=== PATIENT | male | born 1995 | race Caucasian/White ===

== ENCOUNTER 2021-08-28 15:27 | Emergency (ER) | payer OTHER, SELFPAY ==
--- NOTE | 2021-08-28 15:30 | ED.URI ---
HPI - URI/Sore Throat General Chief Complaint: Upper Respiratory Infection Stated Complaint: Fever/Congestion/Cough/Chest Congestion Time Seen by Provider: 08/28/21 15:30 Source: patient and RN notes reviewed History of Present Illness HPI Narrative: Patient is a 26-year-old male who presents the urgent care with complaints of fever, congestion, cough, chest congestion and fever. Patient states his symptoms started last night and everyone in his home is positive for COVID. Patient has had a COVID vaccine. Patient has not taken anything [id number] for his symptoms. Denies of any nausea or vomiting. No other acute complaints. No acute distress noted. Patient had a plan of care. Some parts of this dictation were generated by voice recognition software and may contain typographical and/or grammatical inaccuracies. Related Data Home Medications Medication Instructions Recorded Confirmed gabapentin 08/28/21 naloxone [Narcan] INTRANASAL 08/28/21 trazodone 08/28/21 Allergies Allergy/AdvReac Type Severity Reaction Status Date / Time No Known Allergies Allergy Verified 08/28/21 15:42 Review of Systems Review of Systems: CONSTITUTIONAL: Reports a fever EYES: Denies visual changes, redness, or discharge. ENT: Reports of sinus congestion, sore throat, postnasal drainage CARDIOVASCULAR: Denies chest pain, palpitations, or edema. RESPIRATORY: Reports of cough without dyspnea GASTROINTESTINAL: Denies abdominal pain, nausea, vomiting, or diarrhea. GENITOURINARY: Denies dysuria or hematuria. SKIN: Denies rash or itching. MUSCULOSKELETAL: Denies back pain, joint pain, or myalgia. NEUROLOGIC: Reports of intermittent headaches All other systems reviewed are negative, except as documented in HPI. PMFSH Comments At the time of my signature, I reviewed and agree with the nursing past medical, surgical, social, and family history. There is no relevant family history pertinent to the patient complaint. Exam Narrative: GENERAL: This is a well-nourished, well-developed patient, in no apparent distress. HEAD: normocephalic, atraumatic. EYES: PERRL. Sclera clear/white. Vision is grossly intact. EARS: External ears normal, auditory canals clear and without drainage, TMs normal without perforation. Hearing grossly intact. NOSE: External nose normal with no obvious nasal discharge, mild bilateral erythemic nares with clear to yellow rhinorrhea THROAT: Mucous membranes moist, posterior pharynx clear. Mild postnasal drainage NECK: Neck supple, non-tender without lymphadenopathy, masses or thyromegaly. CARDIOVASCULAR: Regular rate and rhythm without murmurs, gallops, or rubs. RESPIRATORY: Coarse crackles throughout with mild expiratory wheezes SKIN: warm, intact with no suspicious lesions or rash, good texture and turgor. NEURO: awake, alert, and oriented to person, place and time. There were no obvious focal neurologic abnormalities. EXTREMITIES: No clubbing, cyanosis, or edema. Course Course Level of Care: Express Care Visit Vital Signs Vital signs: Vital Signs Temperature 98.1 F 08/28/21 15:34 Pulse Rate 63 08/28/21 15:34 Respiratory Rate 16 08/28/21 15:34 Blood Pressure 128/72 08/28/21 15:34 Pulse Oximetry 99 08/28/21 15:34 Temperature 98.1 F 08/28/21 15:34 Pulse Rate 63 08/28/21 15:34 Respiratory Rate 16 08/28/21 15:34 Blood Pressure 128/72 08/28/21 15:34 Pulse Oximetry 99 08/28/21 15:34 Reviewed MDM - URI/Sore Throat MDM Narrative Medical decision making narrative: Advised the patient to remain quarantine per CDC guidelines. Testing is not necessary considering you are living in a home with positive COVID patients and you are symptomatic. You need to start your quarantine on day 1 of symptom onset, which was reported as of yesterday. Complete the steroid regimen as prescribed. Complete the antibiotic regimen as prescribed. Use Tylenol/ibuprofen as needed for fever pain. Increase your
[2021-08-28 15:34] VITALS: BP 128/72; PULSE 63; RESP 16; TEMP 36.7; O2SAT 99
== END 2021-08-28 15:55 | disposition home or self-care (01) ==
PROVIDERS: Emergency Provider Nurse Practitioner Family
DX: Z20.822 Contact with and (suspected) exposure to COVID-19 (principal); R50.9 Fever, unspecified; R05.9 Cough, unspecified; R09.89 Other specified symptoms and signs involving the circulatory and respiratory systems
CPT/HCPCS: 99213; G0463

== ENCOUNTER 2024-03-24 15:36 | Emergency (ER) | payer OTHER, SELFPAY ==
[2024-03-24 15:50] VITALS: BP 120/79; PULSE 79; RESP 20; TEMP 37; O2SAT 100
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
== END 2024-03-24 16:57 | disposition home or self-care (01) ==
PROVIDERS: Emergency Provider Registered Nurse
DX: H10.9 Unspecified conjunctivitis (principal); F17.210 Nicotine dependence, cigarettes, uncomplicated; F17.290 Nicotine dependence, other tobacco product, uncomplicated
CPT/HCPCS: 99213; G0463

== ENCOUNTER 2024-08-21 17:29 | Emergency (ER) | payer OTHER, SELFPAY ==
[2024-08-21 17:35] VITALS: BP 148/86; PULSE 70; RESP 20; TEMP 37.3; O2SAT 99
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
== END 2024-08-21 18:40 | disposition home or self-care (01) ==
PROVIDERS: Emergency Provider Nurse Practitioner Family
DX: U07.1 COVID-19 (principal); F17.210 Nicotine dependence, cigarettes, uncomplicated; F17.290 Nicotine dependence, other tobacco product, uncomplicated
CPT/HCPCS: 99211; G0463

== ENCOUNTER 2024-12-07 11:38 | Emergency (ER) | payer OTHER, MEDICAID, SELFPAY ==
[2024-12-07 11:45] VITALS: BP 145/80; PULSE 56; RESP 16; TEMP 36.6; O2SAT 100
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
[2024-12-07 12:51] LABS: EDCOVIDSCREEN Negative (Negative); EDINFLUASCREEN Negative (Negative); EDINFLUBSCREEN Negative (Negative); EDSTREPNEGPOS1 Negative (Negative)
--- OUTSIDE RECORDS SUMMARY | 2024-12-07 13:25 | XMS_ITS | Patient Health Record ---
Author Organization [facility] Address [address] [place] [address] Care Team Providers Care Alkylation Operator Name Role Phone Eleazar Sampson Primary Care Provider [phone] Tito Horn Unavailable [phone] Sydnee Tyler Unavailable [phone] Yamini Will Unavailable Rita Davenport Unavailable [phone] Allergies No Known Allergies Results Component Value Reference Range Notes 12 Panel Urine Drug Screen Reviewed date:10/09/2024 01:57:40 PM Interpretation: Performing Lab: Notes/Report: THC neg RUBY neg MOP (OPI) neg AMP neg MET neg BAR neg BZO neg MDMA neg MTD neg OXY neg PCP neg BUP POS 12 Panel Urine Drug Screen Reviewed date:11/12/2024 01:18:45 PM Interpretation: Performing Lab: Notes/Report: THC neg RUBY neg MOP (OPI) neg AMP neg MET neg BAR neg BZO neg MDMA neg MTD neg OXY neg PCP neg BUP POS 12 Panel Urine Drug Screen Reviewed date:01/22/2024 01:42:08 PM Interpretation: Performing Lab: Notes/Report: THC neg RUBY neg MOP (OPI) neg AMP neg MET neg BAR neg BZO neg MDMA neg MTD neg OXY neg PCP neg BUP POS 12 Panel Urine Drug Screen Reviewed date:05/22/2024 01:04:54 PM Interpretation: Performing Lab: Notes/Report: THC neg RUBY neg MOP (OPI) neg AMP neg MET neg BAR neg BZO neg MDMA neg MTD neg OXY neg PCP neg BUP POS 12 Panel Urine Drug Screen Reviewed date:09/04/2024 01:49:02 PM Interpretation: Performing Lab: Notes/Report: THC neg RUBY neg MOP (OPI) neg AMP neg MET neg BAR neg BZO neg MDMA neg MTD neg OXY neg PCP neg BUP POS Buprenorphine and Metabolite (Urine test) Reviewed date:07/29/2024 11:32:19 AM Interpretation: Performing Lab:[facility], [address] [employer], [facility], Phone - [phone], Director - PhDAbudu Notes/Report: Clinical Information:[id number] Buprenorphine Positive Confirmation p erformed by Mass Spectrometry Buprenorphine Positive Buprenorphine Conf, MS, UR 684 Cutoff=10 ng/m L Norbuprenorphine Positive Norbuprenorphine Conf, MS, UR 606 Cutoff=10 n g/mL 12 Panel Urine Drug Screen Reviewed date:07/23/2024 02:28:43 PM Interpretation: Performing Lab: Notes/Report: THC neg RUBY neg MOP (OPI) neg AMP neg MET neg BAR neg BZO neg MDMA neg MTD neg OXY neg PCP neg BUP POS Buprenorphine and Metabolite (Urine test) Reviewed date:04/01/2024 09:19:21 AM Interpretation: Performing Lab:[facility], [address] [employer], [facility], Phone - [phone], Director - PhDAbudu Notes/Report: Clinical Information:[id number] Buprenorphine Positive Confirmation p erformed by Mass Spectrometry Buprenorphine Positive Buprenorphine Conf, MS, UR 135 Cutoff=10 ng/m L Norbuprenorphine Positive Norbuprenorphine Conf, MS, UR 110 Cutoff=10 n g/mL 12 Panel Urine Drug Screen Reviewed date:02/28/2024 02:48:05 PM Interpretation: Performing Lab: Notes/Report: THC neg RUBY neg MOP (OPI) neg AMP neg MET neg BAR neg BZO neg MDMA neg MTD neg OXY neg PCP neg BUP POS 12 Panel Urine Drug Screen Reviewed date:06/24/2024 10:27:32 AM Interpretation: Performing Lab: Notes/Report: THC neg RUBY neg MOP (OPI) neg AMP neg MET neg BAR neg BZO neg MDMA neg MTD neg OXY neg PCP neg BUP POS 12 Panel Urine Drug Screen Reviewed date:04/24/2024 01:05:32 PM Interpretation: Performing Lab: Notes/Report: THC neg RUBY neg MOP (OPI) neg AMP neg MET neg BAR neg BZO neg MDMA neg MTD neg OXY neg PCP neg BUP POS 12 Panel Urine Drug Screen Reviewed date:03/25/2024 10:44:32 AM Interpretation: Performing Lab: Notes/Report: THC neg RUBY neg MOP (OPI) neg AMP neg MET neg BAR neg BZO neg MDMA neg MTD neg OXY neg PCP neg BUP POS 12 Panel Urine Drug Screen Reviewed date:12/16/2023 02:05:16 PM Interpretation: Performing Lab: Notes/Report: THC NEG RUBY NEG MOP (OPI) NEG AMP NEG MET NEG BAR NEG BZO NEG MDMA NEG MTD NEG OXY NEG PCP NEG BUP POS Reason For Referral No Information Medications Medication SIG (Take, Route, Frequency, Duration) Notes Start Date End Date Status buPROPion HCl ER (XL) 300 mg TAKE 1 TABL ET BY MOUTH IN THE MORNING for 30 Active hydrOXYzine HCl 25 MG 1 tablet as needed for anxiety Orally twice a day for 30 day(s) 05/17/2021 Active traZODone HCl 150 mg TAKE 1 TABLET BY MO UT AT BEDTIME for 30 Active Narcan 4 MG/0.1ML as directed Nasally Active Buprenorphine HCl-Naloxone HCl 8-2 MG 1 film under the tongue and allow to dissolve Sublingual three times a day 11/12/2024 Active Gabapentin 300 mg 1 capsule Orally twi ce a day Active Social History Tobacco Use: Social History Observation Description Date Details (start date - stop date) Unknown Sex Assigned At : Social History Observation Description Sex Assigned At Male Tobacco Control (Standard) Question Answer Notes Tobacco use: Uses tobacco in other forms Additional Findings: Tobacco user e-cigarette Problems Problem Type SNOMED Code ICD Code Onset Dates Problem Status W/U Status Risk Notes Problem Tobacco user (119908845) Nicotine dependence, unspecified, uncomplicated (F17.200) Active confirmed Problem Tobacco dependence (56368968) Tobacco dependence (F17.200) Active confirmed Problem Anxiety (65350111) Anxiety (F41.9) Active confirmed Problem Psychoactive substance dependence (0211249) Chemical dependency (F19.20) Active confirmed Problem 373424648785043 Obesity (BMI 30.0-34.9) (E66.9) Active confirmed Problem 739221255 Chronic hepatitis C without hepatic coma (B18.2) 021 Active confirmed ANTIBODIES ONLY; NO RNA; NL LFTS Problem 371642971 Tobacco use disorder (F17.200) Active confirmed Problem 9224608 Opioid use disorder (F11.99) Active confirmed Problem 16753737 Major depressive disorder, recurrent episode with anxious distress (F33.9) 022 Active confirmed Vital Signs Heart Rate 53 /min 11/12/2024 Temperature 98.8 degrees Fahrenheit 05/22/2024 Respiratory Rate 18 /min 11/12/2024 Blood pressure diastolic 60 mm Hg 11/12/2024 Oximetry 98 % 11/12/2024 Height 68.5 in 11/12/2024 Blood pressure systolic 102 mm Hg 11/12/2024 Weight 178 lb 4 oz lbs 11/12/2024 BMI 26.71 kg/m2 11/12/2024 Encounters Encounter Location Date Provider Diagnosis [address] [address] 12/16/2023 Yamini Will Opioid use disorder F11.99 and Tobacco use disorder F17.[address] [address] [facility] [address] 01/22/2024 Tito Horn Opioid use disorder F11.[address] [address] 01/22/2024 [facility] [address] 02/28/2024 Tito Horn Opioid use disorder F11.[address] [address] 02/28/2024 [facility] [address] [address] 03/25/2024 Rita Davenport Opioid use disorder F11.99 ; Nicotine dependence, unspecified, uncomplicated F17.200 ; Dietary counseling Z71.3 and Overweight (BMI 25.0-29.9) E66.[address] [address] 03/25/2024 [facility]nee [facility] [address] [address] 04/24/2024 Eleazar Sampson Opioid use disorder F11.99 and Nicotine dependence, unspecified, uncomplicated F17.[address] [address] 05/22/2024 Eleazarbryant Sampson Opioid use disorder F11.99 and Nicotine dependence, unspecified, uncomplicated F17.[address] [address] 06/24/2024 Tito Horn Opioid use disorder F11.99 and Exposure to potential infection Z20.9 [facility] [address], [place] [address] 07/23/2024 Yamini Nicolette Opioid use disorder F11.99 and Nicotine dependence, unspecified, uncomplicated F17.[address] [address] 09/04/2024 Eleazar Sampson Opioid use disorder F11.99 ; Overweight E66.3 ; Nutritional counseling Z71.3 and Nicotine dependence, unspecified, uncomplicated F17.[address] [address] 10/09/2024 Eleazar Sampson Opioid use disorder F11.99 ; Overweight E66.3 ; Nutritional counseling Z71.3 and Nicotine dependence, unspecified, uncomplicated F17.[address] [address] 11/12/2024 Tito Horn Opioid use disorder F11.[address] [address] 01/22/2024 Eleazar Sampson Dental infection K04.7 and Anxiety F41.[address] [address] 02/28/2024 Eleazar Sampson Anxiety F41.[address] [place] [address] 06/24/2024 Tito Horn Opioid use disorder F11.[address] [place] [address] 07/23/2024 Eleazar Sampson Opioid use disorder F11.99 Assessments Encounter Date Diagnosis (ICD Code) Assessment Notes Treatment Notes Treatment Clinical Notes Section Notes 02/28/2024 Opioid use disorder (ICD-10 - F11.99) 02/28/2024 Anxiety (ICD-10 - F41.9) 04/24/2024 Nicotine dependence, unspecified, uncomplicated (ICD-10 - F17.200) 04/24/2024 Opioid use disorder (ICD-10 - F11.99) 05/22/2024 Nicotine dependence, unspecified, uncomplicated (ICD-10 - F17.200) 05/22/2024 Opioid use disorder (ICD-10 - F11.99) 07/23/2024 Opioid use disorder (ICD-10 - F11.99) 07/23/2024 Opioid use disorder (ICD-10 - F11.99) 10/09/2024 Overweight (ICD-10 - E66.3) 10/09/2024 Opioid use disorder (ICD-10 - F11.99) 06/24/2024 Opioid use disorder (ICD-10 - F11.99) 06/24/2024 Opioid use disorder (ICD-10 - F11.99) 03/25/2024 Nicotine dependence, unspecified, uncomplicated (ICD-10 - F17.200) 01/22/2024 Anxiety (ICD-10 - F41.9) 01/22/2024 Dental infection (ICD-10 - K04.7) 01/22/2024 Opioid use disorder (ICD-10 - F11.99) 12/16/2023 Tobacco use disorder (ICD-10 - F17.200) 12/16/2023 Opioid use disorder (ICD-10 - F11.99) 03/25/2024 Opioid use disorder (ICD-10 - F11.99) 11/12/2024 Opioid use disorder (ICD-10 - F11.99) 09/04/2024 Overweight (ICD-10 - E66.3) 09/04/2024 Opioid use disorder (ICD-10 - F11.99) 09/04/2024 Nutritional counseling (ICD-10 - Z71.3) 03/25/2024 Dietary counseling (ICD-10 - Z71.3) 10/09/2024 Nutritional counseling (ICD-10 - Z71.3) 06/24/2024 Exposure to potential infection (ICD-10 - Z20.9) 07/23/2024 Nicotine dependence, unspecified, uncomplicated (ICD-10 - F17.200) 10/09/2024 Nicotine dependence, unspecified, uncomplicated (ICD-10 - F17.200) 03/25/2024 Overweight (BMI 25.0-29.9) (ICD-10 - E66.3) 09/04/2024 Nicotine dependence, unspecified, uncomplicated (ICD-10 - F17.200) 12/16/2023 Other Patient agrees to take medication as prescribed. Discussed medication side effects, adverse effects, risks, benefits, as well as interactions. Encouraged non-use of opioids. Encouraged participation in recovery groups. Patient may contact office with questions or concerns. Patient is agreeable to above treatment plan and or changes and verbalized understanding. Continue all medication as prescribed. Provided informed consent with understanding of side effects, adverse effects, risks and benefits as well as alternative treatments as previously discussed with the above recommended medication and other aspects of the treatment programs. Discussed off label uses of medication. Agrees to return sooner if symptoms worsen Client verbalized understanding of information and is agreeable to plan of care. Questions addressed. Education given to patient-Understand that discontinuing buprenorphine increased the risk of overdose upon return to illicit opioid use. Know that the use of alcohol or benzodiazepines with buprenorphine increases the risk of overdose and . Understand the importance of informing providers if they become or plan to become . Tell the provider if they are having a procedure that may require pain medications. Education gave about safe and locked storage of medications to avoid theft or inadvertent use, especially by children. Encouraged locking devices and avoiding storage in parts of the home frequented by visitors. 12/16/2023 Other Provided case management services to address social determinants of health needs and reduce barriers to health care services. 01/22/2024 Other Provided case management services to address social determinants of health needs and reduce barriers to health care services. 02/28/2024 Other Provided case management services to address social determinants of health needs and reduce barriers to health care services. 03/25/2024 Other Client agrees to take medication as prescribed. Discussed medication side effects, adverse effects, risks, benefits, as well as interactions. Encouraged non-use of opioids and other illicit substances. Has naloxone. Understand that discontinuing buprenorphine increases the risk of overdose upon return to illicit opioid use. Know that that use of alcohol or benzodiazepines with buprenorphine increases the risk of overdose and . Education provided about safe storage of medications. Encourage participation in recovery groups/counseling services. Patient understands that all treating providers/physicia ns should be informed of buprenorphine use as part of a Medication Assisted Recovery program. Contact office with questions or concerns. 03/25/2024 Other Provided case management services to address social determinants of health needs and reduce barriers to health care services. 04/24/2024 Other Potential side effects of buprenorphine discussed, as well as taking buprenorphine as prescribed. Dangers of using other controlled substances (prescribed or illegal/including benzodiazepines) with buprenorphine discussed. Patient understands taking other narcotics with buprenorphine could lead to respiratory distress and even . Patient understands that ALL treating providers/physicia ns should be informed of buprenorphine use as part of a Medication Assisted Treatment program 06/24/2024 Other [place] 7.5-325 [place] 03/2024. 07/23/2024 Other Patient agrees to take medication as prescribed. Discussed medication side effects, adverse effects, risks, benefits, as well as interactions. Encouraged non-use of opioids. Encouraged participation in recovery groups. Patient may contact office with questions or concerns. 09/04/2024 Other Potential side effects of buprenorphine discussed, as well as taking buprenorphine as prescribed. Dangers of using other controlled substances (prescribed or illegal/including benzodiazepines) with buprenorphine discussed. Patient understands taking other narcotics with buprenorphine could lead to respiratory distress and even . Patient understands that ALL treating providers/physicia ns should be informed of buprenorphine use as part of a Medication Assisted Treatment program 10/09/2024 Other Potential side effects of buprenorphine discussed, as well as taking buprenorphine as prescribed. Dangers of using other controlled substances (prescribed or illegal/including benzodiazepines) with buprenorphine discussed. Patient understands taking other narcotics with buprenorphine could lead to respiratory distress and even . Patient understands that ALL treating providers/physicia ns should be informed of buprenorphine use as part of a Medication Assisted Treatment program Patient may self-administe r their own medications or may self-administe r their own oral medications per [place] Protocol. 01/22/2024 Other Learning About the Safe Use of Antibiotics material was discussed. Pt was educated on use of antibiotic medication including dosing, side effects, adverse effects and anticipated response. Pt was also educated on importance of completing full course of treatment as ordered. Patient voiced understanding of all. Plan Of Treatment No Information Insurance Providers Payer Name Payer Address Payer Phone Subscriber Number Group Number Insured Name Patient Relationship to Insured Coverage Start Date Coverage End Date [facility] [address] [place] [address] [id number] Gee Silva Self - patient is the insured 5 [facility] [employer] [address] [place] [address] [id number] Gee Silva Self - patient is the insured 1 Medications Administered Medication Instructions Date of Administration Dosage Notes Sublocade 07/27/2021 300 mg Right lower pe riumbilical Sublocade 08/24/2021 300 mg Sublocade 10/04/2021 300 mg Sublocade 11/01/2021 300 mg RIGHT MID DON UMBILICAL Sublocade 11/29/2021 300 mg Sublocade 01/02/2022 300 mg left lower per iumbilical Sublocade 01/31/2022 300 mg RIGHT LOWER PE RIUMBILICAL Sublocade 03/21/2022 300 mg left lower per iumbilical Sublocade 04/26/2022 300 mg Sublocade 05/30/2022 300 mg SN: [id number]. Patient tolerated well. Sublocade 07/03/2022 300 mg Sublocade 08/14/2022 300 mg Sublocade 09/12/2022 300 mg Pt piter well. M anufact by [employer] Right upper abd. Sublocade 10/12/2022 300 mg Vivitrol 02/24/2021 380 mg pt tolerated w ell. instructed to massage area over the next few days. verbalized understanding. pt waited in office for 30 min after inj. Vivitrol 03/27/2021 380 mg Mary ma. Pt tolerated well. Voiced no questions or concerns at present time. Vivitrol 04/26/2021 380 mg Managing Supervisor A kalin. Pt tolerated well. Voiced no questions or concerns at present time. Medical (General) History Medical History History ICD Code Substance Use Disorder(meth and fentanyl ) Hepatits C Surgical History Surgery Date(Month/Year) Denies Hospitalization History Reason Date(Month/Year) [facility]24
--- OUTSIDE RECORDS SUMMARY | 2024-12-07 13:25 | XMS_ITS ---
Author Organization [facility] Address [address] [place] [address] Care Team Providers Care Trim Carpenter Name Role Phone Eleazar Sampson Primary Care Provider Tito Horn [phone] Allergies No Known Allergies Results Component Value Reference Range Notes 12 Panel Urine Drug Screen Reviewed date:11/12/2024 01:18:45 PM Interpretation: Performing Lab: Notes/Report: THC neg RUBY neg MOP (OPI) neg AMP neg MET neg BAR neg BZO neg MDMA neg MTD neg OXY neg PCP neg BUP POS REASON FOR VISIT Walk-In-[facility] Medications Medication SIG (Take, Route, Frequency, Duration) Notes Start Date End Date Status buPROPion HCl ER (XL) 300 mg TAKE 1 TABL ET BY MOUTH IN THE MORNING for 30 Active hydrOXYzine HCl 25 MG 1 tablet as needed for anxiety Orally twice a day for 30 day(s) 05/17/2021 Active traZODone HCl 150 mg TAKE 1 TABLET BY [facility] AT BEDTIME for 30 Active Narcan 4 [...] other forms Additional Findings: Tobacco user e-cigarette Vital Signs Weight 178 lb 4 oz lbs 11/12/2024 BMI 26.71 kg/m2 11/12/2024 Respiratory Rate 18 /min 11/12/2024 Height 68.5 in 11/12/2024 Oximetry 98 % 11/12/2024 Heart Rate 53 /min 11/12/2024 Blood pressure systolic 102 mm Hg 11/13/19 25 Blood pressure diastolic 60 mm Hg 025 Encounters Encounter Location Date Provider Diagnosis [address] [place] [address] 11/12/2024 Tito Horn Opioid use disorder F11.99 Assessments Encounter Date Diagnosis (ICD Code) Assessment Notes Treatment Notes Treatment Clinical Notes Section Notes 11/12/2024 Opioid use disorder (ICD-10 - F11.99) Plan Of Treatment Medication Medication Name Sig Start Date Stop Date Notes Buprenorphine HCl-Naloxone H Cl 8-2 MG 1 film under the tongue and allow to dissolve Sublingual three times a day 11/12/2024 Next Appt Details Follow Up: 4 Weeks, Reason: mat Progress Notes * Gee SILVADOB:1995 (29 yo M)Acc No.[id number]:11/12/2024 Patient: Odessa RUIZSHAHZAD Gee Provider: Jazmyn Horn :1995 A ge:29 Y S ex:Male Date:11/12/2024 [facility] Pcp:Eleazar Sampson Check In:01:11 PM APPLICATION SUPPORT ENGINEER Subjective: * Chief Complaints: * W alk-In-[facility] * HPI: I nterim History: Emergency room visit N o. Was hospitalized N o. D epression Screening: PHQ-9 L ittle interest or pleasure in doing things?Several days F eeling down, depressed, or hopeless S everal days T rouble falling or staying asleep, or sleeping too much S everal days F eeling tired or having little energy S everal days P oor appetite or overeating S everal days F eeling bad about yourself or that you are a failure, or have let yourself or your family down S everal days T rouble concentrating on things, such as reading the newspaper or watching television S ever M oving or speaking so slowly that other people could have noticed; or the opposite, being so fidgety or restless that you have been moving around a lot more than usual N ot at all T houghts that you would be better off or of hurting yourself in some way N ot at all T otal Score 7 I nterpretation M ild Depression S creening: [place] Suicide Severity Rating Scale (LF) D o you want to initiate with S creener form 1 . Wish to be : Have you wished you were or wished you could go to sleep and not wake up? N o 2 . Suicidal Thoughts: Have you actually had any thoughts of killing yourself? N o 6 . Suicide Behavior Question: Have you ever done anything,started to do anything, or prepared to end your life? N o I nterpretation: L ow Risk C SSRS Interpretation and Follow Up Plan: CSSRS Interpretation and Follow Up Plan C SSRS Screen documented using SF Y es R isk Disposition from SF L ow - No Follow Up Plan Required F ollow Up Plan N o Follow Up Plan required at this time. T imeframe of Screening T kip OLIVIER follow-up: 1 month MAR walk in f/u. Current dose continues working well. No other issues or concerns at this time. Medication Monitoring and Risk Mitigation U p-to-date on ASAM recommended lab testing??Yes P rescribed a buprenorphine product? Y es H as patient had a buprenorphine and metabolite lab ordered/collected? Y es (see notes for date of last metabolite testing) D ate of last buprenorphine and metabolite?07/23/2024 P rescription Drug Monitoring Program Review?Yes. No concerns at this time. P alina to address any concerns identified: N o concerns identified. Will continue treatment plan as is. Cravings, Setbacks, Substance use, and Stressors C ravings since last visit: N o. Patient denies cravings since last visit. S etbacks since last visit? N o, patient denies setbacks since last visit. M isuse of substances since last visit: N o, patient denies. S tressors N o, patient denies stressors at this time. Withdrawal and Intoxication Symptoms I ntoxication Symptoms: N o signs of intoxication are present during visit. W ithdrawal Symptoms: N o withdrawal signs are present during visit. Mental Health, Support System, and Social Determinants M ental Health Status S table. S upport Systems Include: R ecovery support peer., Recovery support groups (like AA, NA, etc.) C ourt System Involvement? N o H ousing Stability: S table and safe housing. 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 R eferrals needed: N o referrals needed at this time. Recommended Wellness and Prevention Follow-up R ecommended Wellness and Prevention reviewed:?Yes. No additional orders/actions needed at this time. Other concerns: O ther Concerns? N o. N arcan need N o. Patient already has Narcan. * ROS: B asic ROS: Denies S ubstance Abuse. * Medical History: * Surgical History: D enies * Hospitalization/Major Diagno stic Procedure: M [facility]'s 02/2024 * Family History: F ather: , overdose. M other: alive, Healthy. 1 brother(s) , 2 sister(s) . 1 son(s) , 3 daughter(s) - healthy. . 1 sister passed-overdose. * Social History: P rimary Social History: L iving Arrangement L iving Arrangement: D ependent Living L iving with: P jarvis(s) lives with Mother I s this a supportive environment? 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 0 T obacco Use: T obacco Control (Standard) T obacco use: U ses tobacco in other forms A dditional Findings: Tobacco user e -cigarette M iscellaneous: M ethod of learning P referred method of learning: D iscussion * Medications: T akinghydrOXYzine HCl 25 MG Tablet 1 tablet as needed for anxiety Orally twice a day Narcan 4 MG/0.1ML Liquid as directed Nasally traZODone HCl 150 mg Tablet TAKE 1 TABLET BY MOUTH AT BEDTIME buPROPion HCl ER (XL) 300 mg Tablet Extended Release 24 Hour TAKE 1 TABLET BY MOUTH IN THE MORNING Buprenorphine HCl-Naloxone HCl 8-2 MG Film 1 film under the tongue and allow to dissolve Sublingual three times a day Gabapentin 300 mg Capsule 1 capsule Orally twice a day Taking hydrOXYzine HCl 25 MG Tablet 1 tablet as needed for anxiety Orally twice a day Taking Narcan 4 MG/0.1ML Liquid as directed Nasally Taking traZODone HCl 150 mg Tablet TAKE 1 TABLET BY MOUTH AT BEDTIME Taking buPROPion HCl ER (XL) 300 mg Tablet Extended Release 24 Hour TAKE 1 TABLET BY MOUTH IN THE MORNING Taking Buprenorphine HCl-Naloxone HCl 8-2 MG Film 1 film under the tongue and allow to dissolve Sublingual three times a day Taking Gabapentin 300 mg Capsule 1 capsule Orally twice a day * Allergies: N .K.D.A.no[Allergies Verified] Objective: * Vitals: I nitials:cv, Wt:178 lb 4 oz, Ht:68.5, BMI:26.71, BP:102/60, HR:53, Oxygen sat %:98, RR:18, Pain scale:0. * Examination: A [facility] Physical Assessment: Intoxication and Withdrawal signs I ntoxication signs N o signs of intoxication are present during examination. W ithdrawal Signs N o withdrawal signs are present during examination. Assessment: * Assessment: 1. O pioid use disorder - F11.99 (Primary) Plan: * Treatment: Value Reference Range T HC neg * C OC neg * M OP (OPI) neg * A MP neg * M ET neg * B AR neg * B ZO neg * M DMA neg * M TD neg * O XY neg * P CP neg * B UP POS * Recommended Wellness and Pre vention Guidelines: * S tatus A lert L ast Done N ext Due A ction Taken N ONCOMPLIANT A lcohol use screening - 0 11/12/2024 - N ONCOMPLIANT I nfluenza vaccine (high risk) - 0 11/12/2024 - * Procedure Codes: 9 9000 SPECIMEN [id number] BODY MASS INDEX [id number] MEDICAL NUTRITION, INDIV, [id number] BEHAV CHNG SMOKING 3-10 MIN * Preventive Medicine: Counseling: C are goal follow-up plan: BMI management provided Y es Above Normal BMI Follow-up L ifestyle education regarding diet S MOKING: Patient counselled on the dangers of tobacco use and urged to quit. . * Follow Up: 4 Weeks (Reason: mat) * * Sign off status: Completed true * Provider: Jazmyn Horn Date: 0 11/12/2024 Generated for Samantha solis/Tiffany/Matthew on: 0 12/07/2024 01:25 PM CDT History and Physical Notes * HPI (History of Present Illness) Category Sub-Category Detail Notes Category Not es Interim History Was hospitalized No Emergency room visit No Depression Screening PHQ-9 Little inte rest or pleasure in doing things: Several days Feeling down, depressed, or hopeless: Se veral days Trouble falling or staying asleep, or sl eeping too much: Several days Feeling tired or having little energy: S everal days Poor appetite or overeating: Several day s Feeling bad about yourself o r that you are a failure, or have let yourself or your family down: Several days Trouble concentrating on thi ngs, such as reading the newspaper or watching television: Several days Moving or speaking so slowly that other people could have noticed; or the opposite, being so fidgety or restless that you have been moving around a lot more than usual: Not at all Thoughts that you would be b wan off or of hurting yourself in some way: Not at all Total Score: 7 Interpretation: Mild Depression Screening Lagrange Suicide Sev erity Rating Scale (LF) Do you want to initiate with: Screener form 1. Wish to be : Have you wished you were or wished you could go to sleep and not wake up?: No 2. Suicidal Thoughts: Have you actually had any thoughts of killing yourself?: No 6. Suicide Behavior Question: Have you ever done anything,started to do anything, or prepared to end your life?: No Interpretation:: Low Risk MAR follow-up Medication Monitorin g and Risk Mitigation Up-to-date on ASAM recommended lab testing?: Yes Prescribed a buprenorphine product?: Yes Has patient had a buprenorphine and metabolite lab ordered/collected?: Yes (see notes for date of last metabolite testing) Date of last buprenorphine and metabolite: 07/23/2024 Prescription Drug Monitoring Program Rev iew: Yes. No concerns at this time. Plan to address any concerns identified:: No concerns identified. Will continue treatment plan as is. Cravings, Setbacks, Substanc e use, and Stressors Cravings since last visit:: No. Patient denies cravings since last visit. Setbacks since last visit?: No, patient denies setbacks since last visit. Misuse of substances since last visit:: No, patient denies. Stressors: No, patient denies stressors at this time. Withdrawal and Intoxication Symptoms Int oxication Symptoms:: No signs of intoxication are present during visit. Withdrawal Symptoms:: No withdrawal sign s are present during visit. Mental Health, Support Syste m, and Social Determinants Mental Health Status: Stable. Support Systems Include:: Re covery support peer., Recovery support groups (like AA, NA, etc.) Court System Involvement?: No Housing Stability:: Stable and safe hous ing. 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 Referrals needed:: No referrals needed a t this time. Recommended Wellness and Pre vention Follow-up Recommended Wellness and Prevention reviewed:: Yes. No additional orders/actions needed at this time. Other concerns: Other Concerns?: No. Narcan need: No. Patient already has Marlon can. CSSRS Interpretation and Follow Up Plan CSSRS Interpretation and Follow Up Plan CSSRS Screen documented using SF: Yes Risk Disposition from SF: Low - No Follo w Up Plan Required Follow Up Plan: No Follow Up Plan requir ed at this time. Timeframe of Screening: Today Examination Category Sub-Category Detail Notes Category Not es ASAM Physical Assessment Intoxication and Withdrawal signs Intoxication signs: No signs of intoxication are present during examination. Withdrawal Signs: No withdrawal signs ar e present during examination.
--- OUTSIDE RECORDS SUMMARY | 2024-12-07 13:25 | XMS_ITS | Clinical Summary ---
Author Organization [facility] Address [address] [place] [address] Phone Care Team Providers Care Community Services Manager Name Role Phone Tito Horn MD Primary Care Provider [phone] Allergies No known active allergies Medications HYDROcodone-acet aminophen (NORCO) 5-325 MG TabletIndication s:Closed fracture of medial portion of right tibial plateau, initial encounter Take 1 Tablet by mouth every 6 hours as needed for Mild or more severe pain. 20 Tablet 03/17/2024 Active Social History Tobacco Use Types Packs/Day Years Used Date Smoking Tobacco: Every Day Cigarettes Smokeless Tobacco: Never Tobacco Cessation:Ready to Q uit: Not Asked; Counseling Given: Not Answered Alcohol Use Standard Drinks/Week Comments Never 0 (1 standard drink = 0.6 oz pur e alcohol) Sex and Gender Information Value Date Recorded Sex Assigned at Not on file Legal Sex Male 5:43 PM CDT Gender Identity Not on file Sexual Orientation Not on file Last Filed Vital Signs Vital Sign Reading Time Taken Comments Blood Pressure 131/98 03/17/2024 12:14 PM CDT Pulse 72 03/17/2024 12:14 PM CDT Temperature 36.1 C (96.9 F) 03/17/2024 12:14 PM CDT Respiratory Rate 16 03/17/2024 3:42 PM CDT Oxygen Saturation 97% 03/17/2024 12:14 PM CDT Inhaled Oxygen Concentration - - Weight 77.1 kg (170 lb) 03/17/2024 12:14 PM CDT Height 175.3 cm (5' 9 ) 03/17/2024 12:14 PM CDT Body Mass Index 25.1 03/17/2024 12:14 PM CDT Plan of Treatment Health Maintenance Due Date Last Done Comments Hepatitis C Virus (HCV) Screening 1995 TdaP Immunization 1995 Hepatitis B Immunization (1 of 3 - 19+ 3-dose series) 2013 Pneumococcal Immunization Combined (1 of 2 - PCV) 2013 Influenza Immunization (#1) 2024 SARS-COV-2 Immunization (3 - 2023-25 season) 2024 11/24/2020, 10/27/2020 Respiratory Syncytial Virus (RSV) Immunization (Adult) (1 - 1-dose 75+ series) 2069 Meningococcal Immunization (ACWY) Aged Out No longer eligible b ased on patient's age to complete this topic Rotavirus Immunization Aged Out No lo nger eligible based on patient's age to complete this topic Insurance MEDICAID [facility] Care Teams Community Services Manager Relationship Specialty Start Date End Date Tito Horn MD [address] [place], [place] [id number] PCP - General Internal Medicine 03/17/24
--- OUTSIDE RECORDS SUMMARY | 2024-12-07 13:25 | XMS_ITS | Encounter Summary ---
Author Organization [facility] Address 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
--- OUTSIDE RECORDS SUMMARY | 2024-12-07 13:25 | XMS_ITS | Clinical Summary ---
Author Organization [facility] Address [address] 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
--- OUTSIDE RECORDS SUMMARY | 2024-12-07 13:26 | XMS_ITS ---
Author Organization [facility] Address [address] [place] [address] Care Team Providers Care Order Entry Administrator Name Role Phone Eleazar Sampson Primary Care Provider Allergies No Known Allergies Results Component Value Reference Range Notes 12 Panel Urine Drug Screen Reviewed date:10/09/2024 01:57:40 PM Interpretation: Performing Lab: Notes/Report: THC neg RUBY neg MOP (OPI) neg AMP neg MET neg BAR neg BZO neg MDMA neg MTD neg OXY neg PCP neg BUP POS REASON FOR VISIT Walk-In Medications Medication SIG (Take, Route, Frequency, Duration) Notes Start Date End Date Status Gabapentin 300 mg 1 capsule Orally twi ce a day Active traZODone HCl 150 mg TAKE 1 TABLET BY [facility] AT BEDTIME for 30 Active Buprenorphine HCl-Naloxone HCl 8-2 MG 1 film under the tongue and allow to dissolve Sublingual three times a day 10/09/2024 Active buPROPion HCl ER (XL) 300 mg TAKE 1 TABL ET BY MOUTH IN THE MORNING for 30 Active Narcan 4 MG/0.1ML as directed Nasally Active hydrOXYzine HCl 25 MG 1 tablet as needed for anxiety Orally twice a day for 30 day(s) 05/17/2021 Active Social History Tobacco Use: Social History Observation Description Date Details (start date - stop date) Unknown Sex Assigned At : Social History Observation Description Sex Assigned At Male Tobacco Control (Standard) Question Answer Notes Tobacco use: Uses tobacco in other forms Additional Findings: Tobacco user e-cigarette Vital Signs Weight 179.4 lbs 10/09/2024 Height 68.5 in 10/09/2024 BMI 26.88 kg/m2 10/09/2024 Blood pressure systolic 110 mm Hg 10/09/19 25 Blood pressure diastolic 82 mm Hg 025 Heart Rate 75 /min 10/09/2024 Oximetry 97 % 10/09/2024 Respiratory Rate 16 /min 10/09/2024 Encounters Encounter Location Date Provider Diagnosis [address] [facility] [place] [place] [address] 10/09/2024 Eleazarbryant Sampson Opioid use disorder F11.99 ; Overweight E66.3 ; Nutritional counseling Z71.3 and Nicotine dependence, unspecified, uncomplicated F17.200 Assessments Encounter Date Diagnosis (ICD Code) Assessment Notes Treatment Notes Treatment Clinical Notes Section Notes 10/09/2024 Opioid use disorder (ICD-10 - F11.99) 10/09/2024 Overweight (ICD-10 - E66.3) 10/09/2024 Nutritional counseling (ICD-10 - Z71.3) 10/09/2024 Nicotine dependence, unspecified, uncomplicated (ICD-10 - F17.200) 10/09/2024 Other Potential side effects of buprenorphine discussed, as well as taking buprenorphine as prescribed. Dangers of using other controlled substances (prescribed or illegal/including benzodiazepines) with buprenorphine discussed. Patient understands taking other narcotics with buprenorphine could lead to respiratory distress and even . Patient understands that ALL treating providers/physici ans should be informed of buprenorphine use as part of a Medication Assisted Treatment program Patient may self-administe r their own medications or may self-administe r their own oral medications per [place] Protocol. Plan Of Treatment Medication Medication Name Sig Start Date Stop Date Notes Gabapentin 300 mg 1 capsule Orally twi ce a day Buprenorphine HCl-Naloxone H Cl 8-2 MG 1 film under the tongue and allow to dissolve Sublingual three times a day 10/09/2024 Treatment Notes Assessment Notes Other Potential side effects of buprenorphine discussed, as well as taking buprenorphine as prescribed. Dangers of using other controlled substances (prescribed or illegal/including benzodiazepines) with buprenorphine discussed. Patient understands taking other narcotics with buprenorphine could lead to respiratory distress and even . Patient understands that ALL treating providers/physicians should be informed of buprenorphine use as part of a Medication Assisted Treatment program Next Appt Details Follow Up: 4 Weeks, Reason: Progress Notes * Gee SILVADOJodi:1995 (29 yo M)Acc No.[id number]:10/09/2024 Patient: Gee FISHMAN Provider: Wale Sampson, MSN, AGPCNP-BC :1995 A ge:29 Y S ex:Male Date:10/09/2024 Address:[facility] [address] [facility] Check In:01:45 PM LOAN CLERK Subjective: * Chief Complaints: * W alk-In * HPI: M AR follow-up: 1 month MAR walk in f/u. [...] safe housing. 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 R eferrals needed: N o referrals needed at this time. Recommended Wellness and Prevention Follow-up R ecommended Wellness and Prevention reviewed:?Yes. No additional orders/actions needed at this time. Other concerns: O ther Concerns? N o. N arcan need N o. Patient already has Narcan. I nterim History: Emergency room visit N o. Was hospitalized N o. D epression Screening: PHQ-9 L ittle interest or pleasure in doing things?Several days F eeling down, depressed, or hopeless S everal T rouble falling or staying asleep, or sleeping too much S ever F eeling tired or having little energy S ever P oor appetite or overeating S ever F eeling bad about yourself or that you are a failure, or have let yourself or your family down S ever T rouble concentrating on things, such as reading the newspaper or watching television S M oving or speaking so slowly that other people could have noticed; or the opposite, being so fidgety or restless that you have been moving around a lot more than usual S ever T houghts that you would be better off or of hurting yourself in some way N ot at all T otal Score 8 I nterpretation M ild Depression S creening: [place] Suicide Severity Rating Scale (LF) D o [...] Follow Up Plan required at this time. * ROS: A ll Other Systems: Review of Systems (ROS) A ll others negative except those mentioned in HPI. * Medical History: * Surgical History: D enies * Hospitalization/Major Diagno stic Procedure: [facility] * Family History: F ather: , overdose. M other: alive, Healthy. 1 brother(s) , 2 sister(s) . 1 son(s) , 3 daughter(s) - healthy. . 1 sister passed-overdose. 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 obacco Use: T obacco Control (Standard) [...] 1 TABLET BY MOUTH IN THE MORNING Gabapentin 300 mg Capsule 1 capsule Orally twice a day Buprenorphine HCl-Naloxone HCl 8-2 MG Film 1 film under the tongue and allow to dissolve Sublingual three times a day Taking hydrOXYzine HCl 25 MG Tablet 1 tablet as needed for anxiety Orally twice a day Taking Narcan 4 MG/0.1ML Liquid as directed Nasally Taking traZODone HCl 150 mg Tablet TAKE 1 TABLET BY MOUTH AT BEDTIME Taking buPROPion HCl ER (XL) 300 mg Tablet Extended Release 24 Hour TAKE 1 TABLET BY MOUTH IN THE MORNING Taking Gabapentin 300 mg Capsule 1 capsule Orally twice a day Taking Buprenorphine HCl-Naloxone HCl 8-2 MG Film 1 film under the tongue and allow to dissolve Sublingual three times a day * Allergies: N .K.D.A.no[Allergies Verified] Objective: * Vitals: I nitials: dt, Wt:179.4, Ht: 68.5, BMI:26.88, BP:110/82, HR:75, Oxygen sat %:97, RR:16, Pain scale:0. * Examination: G eneral Examination: GENERAL APPEARANCE: p leasant, in no acute distress. SKIN: w arm and dry. LUNGS: r espirations regular and easy. PSYCH: a lert, oriented x4, speech clear, good eye contact.? Assessment: * Assessment: 1. O verweight - E66.3 2 . O pioid use disorder - F11.99 (Primary) ? 3 . N utritional counseling - Z71.3 4 . N icotine dependence, unspecified, uncomplicated - F17.200 Plan: * Treatment: Value Reference Range T HC neg * C OC neg * M OP (OPI) neg * A MP neg * M ET neg * B AR neg * B ZO neg * M DMA neg * M TD neg * O XY neg * P CP neg * B UP POS 2.?Others? Notes:Potential side effects of buprenorphine discussed, as well as taking buprenorphine as prescribed. Dangers of using other controlled substances (prescribed or illegal/including benzodiazepines) with buprenorphine discussed. Patient understands taking other narcotics with buprenorphine could lead to respiratory distress and even . Patient understands that ALL treating providers/physicians should be informed of buprenorphine use as part of a Medication Assisted Treatment program? Clinical Notes: Patient may self-administer their own medications or may self- administer their own oral medications per [place] Protocol.?? * Procedure Codes: 9 9000 SPECIMEN [id number] BODY MASS INDEX [id number] MEDICAL NUTRITION, INDIV, [id number] BEHAV CHNG SMOKING 3-10 [id number] SELF-MGMT EDUC & TRAIN, 1 PT * Preventive Medicine: Counseling: C are goal follow-up plan: BMI management provided Y es Above Normal BMI Follow-up L ifestyle education regarding diet S MOKING: Patient counselled on the dangers of tobacco use and urged to quit. . * Follow Up: 4 Weeks * * CLERK Sign off status: Completed true * Provider: Wale Sampson, MSN, AGPCNP-BC Date: 10/09/2024 Generated for Printing/Faxing/eTransmitting on: 0 12/07/2024 01:25 PM CDT History [...] moving around a lot more than usual: Several days Thoughts that you would be b wan off or of hurting yourself in some way: Not at all Total Score: 8 Interpretation: Mild Depression Screening [place] Suicide Sev erity Rating Scale (LF) Do [...] and safe hous ing. 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 Referrals needed:: No referrals needed a t [...] Up Plan requir ed at this time. Examination Category Sub-Category Detail Notes Category Not es General Examination GENERAL APPEARANCE: pleasant, in n o acute distress LUNGS: respirations regular and easy SKIN: warm and dry PSYCH: alert, oriented x4, speech clear, good eye contact
--- OUTSIDE RECORDS SUMMARY | 2024-12-07 13:26 | XMS_ITS ---
Author Organization [facility] Address [address] [place] [address] Care Team Providers Care Sensitized Paper Tester Name Role Phone Eleazar Sampson Primary Care Provider [phone] Allergies No Known Allergies REASON FOR VISIT Walk-In Medications Medication SIG (Take, Route, Frequency, Duration) Notes Start Date End Date Status traZODone HCl 150 mg TAKE 1 TABLET BY [facility] AT BEDTIME for 30 Active Narcan 4 MG/0.1ML as directed Nasally Active Buprenorphine HCl-Naloxone HCl 8-2 MG 1 film under the tongue and allow to dissolve Sublingual three times a day 09/04/2024 Active buPROPion HCl ER (XL) 300 mg TAKE 1 TABL ET BY MOUTH IN THE MORNING for 30 Active Gabapentin 300 mg 1 capsule Orally twi ce a day Active hydrOXYzine HCl 25 MG 1 tablet [...] Findings: Tobacco user e-cigarette Vital Signs Weight 181.6 lbs 09/04/2024 Height 68.5 in 09/04/2024 BMI 27.21 kg/m2 09/04/2024 Blood pressure systolic 114 mm Hg 09/04/19 25 Blood pressure diastolic 82 mm Hg 025 Heart Rate 54 /min 09/04/2024 Oximetry 98 % 09/04/2024 Respiratory Rate 16 /min 09/04/2024 Encounters Encounter Location Date Provider Diagnosis [address] [place] [address] 09/04/2024 Eleazar Sampson Opioid use disorder F11.99 ; Overweight E66.3 ; Nutritional counseling Z71.3 and Nicotine dependence, unspecified, uncomplicated F17.200 Assessments Encounter Date Diagnosis (ICD Code) Assessment Notes Treatment Notes Treatment Clinical Notes Section Notes 09/04/2024 Opioid use disorder (ICD-10 - F11.99) 09/04/2024 Overweight (ICD-10 - E66.3) 09/04/2024 Nutritional counseling (ICD-10 - Z71.3) 09/04/2024 Nicotine dependence, unspecified, uncomplicated (ICD-10 - F17.200) 09/04/2024 Other Potential side effects of buprenorphine [...] part of a Medication Assisted Treatment program Plan Of Treatment Medication Medication Name Sig Start Date Stop Date Notes Buprenorphine HCl-Naloxone H Cl 8-2 MG 1 film under the tongue and allow to dissolve Sublingual three times a day 09/04/2024 Treatment Notes Assessment Notes Other Potential side [...] 4 Weeks, Reason: Progress Notes * Gee SILVADOB:1995 (29 yo M)Acc No.[id number]:09/04/2024 Patient: Odessa Gee SOSA Provider: Wale Sampson, MSN, AGPCNP-BC :1995 A ge:29 Y S ex:Male Date:09/04/2024 Address:[address] [place], [place] [address] Check In:01:42 PM COMPUTER ARCHITECT Subjective: * Chief Complaints: * W alk-In [...] safe housing. 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 R eferrals needed: N o referrals needed [...] around a lot more than usual S T houghts that you would be better off or of hurting yourself in some way N ot at all T otal Score 8 I nterpretation M ild Depression S creening: [place] Suicide Severity Rating Scale (LF) D o you want to initiate with S creener form 1 . Wish to be : Have you wished you were or wished you could go to sleep and not wake up? N o 2 . Suicidal Thoughts: Have you actually had any thoughts of killing yourself? N o 6 . Suicide Behaviour: Have you ever done anything,started to do [...] * Hospitalization/Major Diagno stic Procedure: M [facility] 02/2024 * Family History: F ather: , overdose. M other: alive, Healthy. 1 brother(s) , 2 sister(s) . 1 son(s) , 3 daughter(s) - healthy. . 1 sister passed-overdose. 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 * Examination: G eneral [...] part of a Medication Assisted Treatment program? * Procedure Codes: 3 008F BODY MASS INDEX [id number] MEDICAL NUTRITION, INDIV, [id number] BEHAV CHNG SMOKING 3-10 [id number] SELF-MGMT EDUC & TRAIN, 1 PT * Preventive Medicine: Counseling: C are goal follow-up plan: BMI management provided Y es Above Normal BMI Follow-up L ifestyle education regarding diet S MOKING: Patient counselled on the dangers of tobacco use and urged to quit. . * Follow Up: 4 Weeks * * UTER ARCHITECT Sign off status: Completed true * Provider: Wale Sampson, MSN, AGPCNP-BC Date: 0 09/04/2024 Generated for Printing/Faxing/eTransmitting on: 0 12/07/2024 01:26 PM CDT History and Physical Notes * [...] Total Score: 8 Interpretation: Mild Depression Screening [place] Suicide Sev erity Rating Scale (LF) Do [...] and safe hous ing. 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 Referrals needed:: No referrals needed a t [...]
--- OUTSIDE RECORDS SUMMARY | 2024-12-07 13:26 | XMS_ITS | Continuity of Care Document ---
Author Organization [facility] Address [address] [place] [address] Phone Care Team Providers Care Bark Peeler Name Role Phone Schuyler Esposito MD Unavailable Unavailable Advance Directives Directive Yes / No Effective Date File Name No Information Encounters Encounter Description Practice Location Reason(s) For Visit Diagnoses Date Provider Providers Copied on Encounter [facility], [address], [place], [place], [id number], tel:[phone] [facility] No Information Vaibhav Payan. [address] [place] [address], [address], [id number], . tel:[phone] Referring Provider: Schuyler Esposito, [address] [place] [address], [address]. tel:[phone] Family History Family Member Type Diagnosis Age At Onset No Information Payers Payer name Insurance type Covered green party ID [facility] Erron germain(s) [facility] [id number] Social History Type Description Quantity Date Captured Comments Sex Male Smoking Status No Information Chief Complaint And Reason For Visit No Information Reason For Referral Reason For Referral No Information History Of Present Illness Encounter Date Complaint History Of Prese nt Illness No Information Functional Status Date Functional Assessmen t No Information Instructions Date Instruction Additional Infor mation No Information Assessments Type Assessment Date No Information Patient Care Teams Name Effective Dates (start - stop) Status Members No Information
--- OUTSIDE RECORDS SUMMARY | 2024-12-07 13:27 | XMS_ITS | Continuity of Care Document ---
Author Organization [facility] Address [address] [place] [address] Phone Care Team Providers Care Form Presser Name Role Phone Schuyler Esposito MD Unavailable Unavailable Advance Directives Directive Yes / No Effective Date File Name No Information Encounters Encounter Description Practice Location Reason(s) For Visit Diagnoses Date Provider Providers Copied on Encounter [facility], [address], [place], [place], [id number], tel:[phone] [facility] No Information Vaibhav Payan. [address] [place] [address], [address], [id number], . tel:[phone] Referring Provider: Schuyler Esposito, [address] [place] [address], [address]. tel:[phone] Family History Family Member Type Diagnosis Age At Onset No Information Payers Payer name Insurance type Covered constitution party ID [facility] [id number] Social History Type Description Quantity Date Captured [...]
--- OUTSIDE RECORDS SUMMARY | 2024-12-07 13:27 | XMS_ITS ---
Author Organization [facility] Address [address] [place] [address] Care Team Providers Care Machine Technician Name Role Phone Eleazar Sampson Primary Care Provider Allergies No Known Allergies REASON FOR VISIT Walk-In Medications Medication SIG (Take, Route, Frequency, Duration) Notes Start Date End Date Status traZODone HCl 150 mg TAKE 1 TABLET BY [facility] AT BEDTIME for 30 Active Narcan 4 [...] 09/04/2024 Encounters Encounter Location Date Provider Diagnosis [address] [place] [address] 09/04/2024 Eleazar Sampson Opioid use disorder F11.99 [...] Notes * Gee SILVADOB:1995 (29 yo M)Acc No.[id number]:09/04/2024 Patient: Odessa Gee SOSA Provider: Wale Sampson, MSN, AGPCNP-BC :1995 A ge:29 Y S ex:Male Date:09/04/2024 Address:[address] [place], [place] [address] Check In:01:42 PM MANDREL MAKER Subjective: * Chief Complaints: * W alk-In [...] I nterpretation M ild Depression S creening: [place] Suicide Severity Rating Scale (LF) D o [...] enies * Hospitalization/Major Diagno stic Procedure: M [facility] 02/2024 * Family History: F [...] 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 . * Follow Up: 4 Weeks * * REL MAKER Sign off status: Completed true * Provider: [...] Total Score: 8 Interpretation: Mild Depression Screening [place] Suicide Sev erity Rating Scale (LF) Do [...]
--- OUTSIDE RECORDS SUMMARY | 2024-12-07 13:28 | XMS_ITS ---
Author Organization [facility] Address [address] [place] [address] Care Team Providers Care Club Licensee Name Role Phone Eleazar Sampson Primary Care [...] HCl 150 mg TAKE 1 TABLET BY [facility] AT BEDTIME for 30 Active Buprenorphine HCl-Naloxone [...] 10/09/2024 Encounters Encounter Location Date Provider Diagnosis [address] [place] [address] 10/09/2024 Eleazarbryant Sampson Opioid use disorder F11.99 [...] self-administe r their own oral medications per [place] Protocol. Plan Of Treatment Medication Medication Name [...] Notes * Gee SILVADOJodi:1995 (29 yo M)Acc No.[id number]:10/09/2024 Patient: Gee FISHMAN Provider: Wale Sampson, MSN, AGPCNP-BC :1995 A ge:29 Y S ex:Male Date:10/09/2024 Address:[facility] [address] [facility] Check In:01:45 PM PERFORATING MACHINE OPERATOR Subjective: * Chief Complaints: * W alk-In [...] safe housing. 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 * Procedure Codes: 9 9000 SPECIMEN [id number] BODY MASS INDEX [id number] MEDICAL NUTRITION, INDIV, [id number] BEHAV CHNG SMOKING 3-10 [id number] SELF-MGMT EDUC & TRAIN, 1 PT * Preventive Medicine: Counseling: C are goal follow-up plan: BMI management provided Y es Above Normal BMI Follow-up L ifestyle education regarding diet S MOKING: Patient counselled on the dangers of tobacco use and urged to quit. . * Follow Up: 4 Weeks * * ORATING MACHINE OPERATOR Sign off status: Completed true * Provider: Wale Sampson, MSN, AGPCNP-BC Date: 10/09/2024 Generated for Printing/Faxing/eTransmitting on: 12/07/2024 01:27 PM CDT History and Physical Notes * [...] Total Score: 8 Interpretation: Mild Depression Screening [place] Suicide Sev erity Rating Scale (LF) Do [...] and safe hous ing. 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 Referrals needed:: No referrals needed a t [...]
== END 2024-12-07 12:55 | disposition home or self-care (01) ==
PROVIDERS: Emergency Provider Registered Nurse
DX: R11.2 Nausea with vomiting, unspecified (principal); Z20.822 Contact with and (suspected) exposure to COVID-19; F17.210 Nicotine dependence, cigarettes, uncomplicated; F17.290 Nicotine dependence, other tobacco product, uncomplicated
CPT/HCPCS: 87081; 87426; 87804; 87880; 99213; G0463